=== PATIENT | female | born 1970 | race American Indian/Alaskan Native ===

== ENCOUNTER 2019-02-27 17:30 | Emergency (ER) | payer SELFPAY ==
[2019-02-27] MEDS ORDERED: IBUPROFEN PO ONE (20:56)
--- NOTE | 2019-02-27 21:24 | Emergency Department Report ---
ED Chest Pain HPI - General Chief Complaint: Chest Pain Stated Complaint: MIDDLE CHEST PAIN Time Seen by Provider: 02/27/19 20:55 Source: patient Mode of arrival: Ambulatory Limitations: No Limitations - History of Present Illness Initial Comments: pt is a 48-year-old female who presents from his midsternal chest pain pains exacerbated by palpation and movement deep breathing pain is relieved by nothing pain consistent for the past 2-3 weeks noticed chest mass 1 year ago there is no fever no chills no cough no diaphoresis no back pain patient denies shortness of breath MD Complaint: chest pain Onset/Timin -: week(s) Onset: during rest Pain Location: substernal Pain Radiation: none Severity: moderate Severity scale (0 -10): 5 Quality: sharp Consistency: constant Improves With: nothing Worsens With: palpation, other (anxiety ) re: denies: nausea, vomting, diaphoresis, dyspnea, sense of impending doom Other Symptoms: cough. denies: fever, syncope, rash, acid taste in mouth, leg swelling, palpitations Treatments Prior to Arrival: none - Related Data On Oral Contraceptives: No Previous Rx's Medication Instructions Recorded Last Taken Type Naproxen [Naprosyn TAB] 500 mg PO BID PRN #30 tablet 02/28/19 Unknown Rx Omeprazole 20 mg PO DAILY #30 tablet. 02/28/19 Unknown Rx Sucralfate [Carafate] 1 gm PO ACHS 7 Days #28 udc 02/28/19 Unknown Rx Allergies Allergy/AdvReac Type Severity Reaction Status Date / Time No Known Allergies Allergy Unverified 02/27/19 17:34 Heart Score - HEART Score History: Slightly suspicious EKG: Normal Age: 45-65 Risk factors: No known risk factors Troponin: < normal limit HEART Score: 1 ED Review of Systems ROS: Stated complaint: MIDDLE CHEST PAIN Other details as noted in HPI Constitutional: denies: chills, fever Eyes: denies: eye pain, eye discharge, vision change ENT: denies: ear pain, throat pain Respiratory: denies: cough, shortness of breath, wheezing Cardiovascular: chest pain Endocrine: no symptoms reported Gastrointestinal: denies: abdominal pain, nausea, vomiting, diarrhea Genitourinary: denies: urgency, dysuria, discharge Musculoskeletal: denies: back pain, joint swelling, arthralgia Skin: denies: rash, lesions Neurological: denies: headache, weakness, paresthesias Psychiatric: anxiety. denies: depression Hematological/Lymphatic: denies: easy bleeding, easy bruising ED Past Medical Hx - Past Medical History Previous Medical History?: Yes Hx Diabetes: Yes - Surgical History Past Surgical History?: No - Social History Smoking Status: Never Smoker Substance Use Type: None - Medications Home Medications: Home Medications Medication Instructions Recorded Confirmed Last Taken Type Naproxen [Naprosyn TAB] 500 mg PO BID PRN #30 tablet 02/28/19 Unknown Rx Omeprazole 20 mg PO DAILY #30 tablet. 02/28/19 Unknown Rx Sucralfate [Carafate] 1 gm PO ACHS 7 Days #28 udc 02/28/19 Unknown Rx ED Physical Exam - General Limitations: No Limitations General appearance: alert, in no apparent distress - Head Head exam: Present: atraumatic, normocephalic - Eye Eye exam: Present: normal appearance, PERRL, EOMI Pupils: Present: normal accommodation - ENT ENT exam: Present: mucous membranes moist - Neck Neck exam: Present: normal inspection - Respiratory Respiratory exam: Present: normal lung sounds bilaterally. Absent: respiratory distress - Cardiovascular Cardiovascular Exam: Present: regular rate, normal rhythm, normal heart sounds. Absent: systolic murmur, diastolic murmur, rubs, gallop - GI/Abdominal GI/Abdominal exam: Present: soft, normal bowel sounds. Absent: distended, tenderness, guarding, rebound, bruit, hernia - Extremities Exam Extremities exam: Present: normal inspection, full ROM, normal capillary refill. Absent: tenderness, pedal edema, joint swelling, calf tenderness - Back Exam Back exam: Present: normal inspection, full ROM. Absent: tenderness, CVA tenderness (R), CVA tenderness (L), muscle spasm, rash noted - Neurological Exam Neurological exam: Present: alert, oriented X3, CN II-XII intact, normal gait, motor sensory deficit, reflexes normal - Psychiatric Psychiatric exam: Present: normal affect, anxious - Skin Skin exam: Present: warm, dry, intact, normal color. Absent: rash ED Course Vital Signs 02/27/19 17:37 Temperature 98.3 F Pulse Rate 103 H Respiratory 16 Rate Blood Pressure 145/90 [Left] O2 Sat by Pulse 99 Oximetry ED Medical Decision Making - Lab Data Result diagrams: 02/27/19 22:33 02/27/19 22:33 Labs 02/27/19 02/27/19 22:33 22:33 WBC 10.3 RBC 4.63 Hgb 12.8 Hct 37.9 MCV 82 MCH 28 MCHC 34 RDW 14.0 Plt Count 262 Sodium 134 L Potassium 4.6 Chloride 96.2 L Carbon Dioxide 24 Anion Gap 18 BUN 11 Creatinine 0.4 L Estimated GFR > 60 BUN/Creatinine Ratio 28 Glucose 212 H Calcium 9.6 Total Bilirubin < 0.20 AST 15 ALT 17 Alkaline Phosphatase 92 Troponin T < 0.010 Total Protein 8.0 Albumin 4.1 Albumin/Globulin Ratio 1.1 Lipase 178 H - EKG Data EKG shows normal: sinus rhythm, axis, intervals, QRS complexes, ST-T waves Rate: normal - EKG Data Interpretation: normal EKG (will) - Radiology Data Radiology results: report reviewed, image reviewed (myoglobin is) Ordering Physician: DEEPTI BACA NP Date of Service: 02/27/19 Procedure(s): XR chest routine 2V Accession Number(s): [id number] cc: DEEPTI BACA NP Fluoro Time In Minutes: CHEST 2 VIEWS INDICATION / CLINICAL INFORMATION: chest pain. COMPARISON: None available. FINDINGS: SUPPORT DEVICES: None. HEART / MEDIASTINUM: No significant abnormality. LUNGS / PLEURA: No significant pulmonary or pleural abnormality. No pneumot horax. ADDITIONAL FINDINGS: No significant additional findings. IMPRESSION: 1. No acute findings. Signer Name: Randy Bell MD Signed: 02/27/2019 10:05 PM Workstation Name: [id number] Transcribed By: Dictated By: Randy Bell MD Electronically Authenticated By: Randy Bell MD Signed Date/Time: 02/27/192204 DD/ 04 TD/TT: Ordering Physician: DEEPTI BACA NP Date of Service: 02/27/19 Procedure(s): CT abdomen pelvis w con Accession Number(s): [id number] cc: DEEPTI BACA NP CT ABDOMEN AND PELVIS WITH CONTRAST INDICATION: abdominal pain. TECHNIQUE: Axial CT images were obtained through the abdomen and pelvis after 100 cc Omnipaque [address] scans at this location are performed using CT dose reduction for ALARA by means of automated exposure control. COMPARISON: None available. FINDINGS: LOWER CHEST: Solid 9 mm left lower lobe pulmonary nodule is present on image 15. LIVER: Moderate decreased attenuation throughout liver characteristic for steatosis. Liver is enlarged measuring 20 cm in craniocaudal length. GALLBLADDER: No significant abnormality. BILE DUCTS: No significant abnormality. PANCREAS: No significant abnormality. SPLEEN: Several tiny subcentimeter hypodense lesions are indeterminate and too small to characterize of doubtful clinical significance likely representing pseudocysts. ADRENALS: No significant abnormality. RIGHT KIDNEY and URETER: No significant abnormality. LEFT KIDNEY and URETER: No significant abnormality. STOMACH and SMALL BOWEL: No significant abnormality. COLON: No significant abnormality. APPENDIX: Normal PERITONEUM: No free fluid. No free air. No fluid collection. LYMPH NODES: No significant adenopathy. AORTA and ARTERIES: No significant abnormality. IVC and VEINS: No significant abnormality. URINARY BLADDER: No significant abnormality. REPRODUCTIVE ORGANS: 3.5 cm right ovarian follicular cyst. 2.3 cm left ovarian follicular cyst. Uterus absent. ADDITIONAL FINDINGS: None. SKELETAL SYSTEM: No significant abnormality. IMPRESSION: 1. 3.5 cm right and 2.3 cm left ovarian follicular cysts. No free fluid to suggest leakage or rupture. 2. No CT evidence for pancreatitis or other acute inflammatory process. 3. Moderate hepatomegaly and marked steatosis. 4. Incidental solid 9 mm left lower lobe pulmonary nodule INCIDENTAL PULMONARY NODULE RECOMMENDATIONS Solid Nodule size >8 mm -- Single - Low Risk or High Risk Patient: Consider CT at 3 months, PET/CT, or tissue s ampling Note These recommendations do not apply to lung cancer screening, patients with immunosuppression, or patients with known primary cancer. Note Newly detected indeterminate nodule in persons 35 years of age or older. Persons under the age of 35 should not receive follow-up unless there is a known primary cancer. Low Risk Patient -- minimal or absent history of smoking and of other known risk factors. High Risk Patient -- history of smoking or of other known risk factors. Nodule dimensions are average of long and short axes, rounded to the nearest millimeter. Based on 2017 Fleischner Society Guidelines found in Radiology 2017 284:228-243. [email or web address] Signer Name: Joshua Preciado MD Signed: 02/28/2019 1:58 AM Workstation Name: [id number] Transcribed By: TL Dictated By: Joshua Preciado MD Electronically Authenticated By: Joshua Preciado MD Signed Date/Time: 02/28/19157 DD/ 3 TD/TT: Critical care attestation.: If time is entered above; I have spent that time in minutes in the direct care of this critically ill patient, excluding procedure time. ED Disposition Clinical Impression: Fatty liver, Lung nodule GERD (gastroesophageal reflux disease) Qualifiers: Esophagitis presence: without esophagitis Qualified Code(s): K21.9 - Gastro- esophageal reflux disease without esophagitis Ovarian cyst Qualifiers: Laterality: right Qualified Code(s): N83.201 - Unspecified ovarian cyst, right side Disposition: TO HOME OR SELFCARE Is pt being admited?: No Does the pt Need Aspirin: No Condition: Stable Instructions: Pulmonary Nodules (ED), Gastroesophageal Reflux Disease (ED), Diet for Ulcers and Gastritis (ED), Non-Alcoholic Fatty Liver Disease (ED) Prescriptions: Sucralfate [Carafate] 1 gm PO ACHS 7 Days #28 udc Naproxen [Naprosyn TAB] 500 mg PO BID PRN #30 tablet PRN Reason: Pain , Severe (7-10) Omeprazole 20 mg PO DAILY #30 tablet. Referrals: [facility] [Provider Group] - 3-5 Days RAMILA BRANDON MD [Staff Physician] - 3-5 Days TRINITY STOUT MD [Staff Physician] - 3-5 Days Forms: Work/School Release Form(ED) Time of Disposition: 02:23
--- NOTE | 2019-02-27 22:09 | XRay Report ---
CHEST 2 VIEWS INDICATION / CLINICAL INFORMATION: chest pain. COMPARISON: None available. FINDINGS: SUPPORT DEVICES: None. HEART / MEDIASTINUM: No significant abnormality. LUNGS / PLEURA: No significant pulmonary or pleural abnormality. No pneumothorax. ADDITIONAL FINDINGS: No significant additional findings. IMPRESSION: 1. No acute findings. Signer Name: Randy Bell MD Signed: 02/27/2019 10:05 PM Workstation Name: [id number]
[2019-02-27 22:47] LABS: Hematocrit 37.9 % (30.3-42.9); Hemoglobin 12.8 gm/dl (10.1-14.3); Mean Corpuscular HGB Conc 34 % (30-34); Mean Corpuscular Volume 82 fl (79-97); Platelet Count 262 K/mm3 (140-440); Red Blood Count 4.63 M/mm3 (3.65-5.03)
[2019-02-27 23:13] LABS: Alanine Aminotransferase 17 units/L (7-56); Albumin 4.1 g/dL (3.9-5); BUN/Creatinine Ratio 28; Blood Urea Nitrogen 11 mg/dL (7-17); Calcium 9.6 mg/dL (8.4-10.2); Hemolysis Index 77
[2019-02-27] MEDS ORDERED: NACL 0.9% 1000 ML 1,000 ML IV ONE (23:36)
[2019-02-27] MEDS ORDERED: MORPHINE IV ONE (23:36)
--- NOTE | 2019-02-28 02:03 | Cat Scan Report ---
CT ABDOMEN AND PELVIS WITH CONTRAST INDICATION: abdominal pain. TECHNIQUE: Axial CT images were obtained through the abdomen and pelvis after 100 cc Omnipaque [address] scans at this location are performed using CT dose reduction for ALARA by means of automated exposure control. COMPARISON: None available. FINDINGS: LOWER CHEST: Solid 9 mm left lower lobe pulmonary nodule is present on image 15. LIVER: Moderate decreased attenuation throughout liver characteristic for steatosis. Liver is enlarge d measuring 20 cm in craniocaudal length. GALLBLADDER: No significant abnormality. BILE DUCTS: No significant abnormality. PANCREAS: No significant abnormality. SPLEEN: Several tiny subcentimeter hypodense lesions are indeterminate and too small to characterize of doubtful clinical significance likely representing pseudocysts. ADRENALS: No significant abnormality. RIGHT KIDNEY and URETER: No significant abnormality. LEFT KIDNEY and URETER: No significant abnormality. STOMACH and SMALL BOWEL: No significant abnormality. COLON: No significant abnormality. APPENDIX: Normal PERITONEUM: No free fluid. No free air. No fluid collection. LYMPH NODES: No significant adenopathy. AORTA and ARTERIES: No significant abnormality. IVC and VEINS: No significant abnormality. URINARY BLADDER: No significant abnormality. REPRODUCTIVE ORGANS: 3.5 cm right ovarian follicular cyst. 2.3 cm left ovarian follicular cyst. Uteru s absent. ADDITIONAL FINDINGS: None. SKELETAL SYSTEM: No significant abnormality. IMPRESSION: 1. 3.5 cm right and 2.3 cm left ovarian follicular cysts. No free fluid to suggest leakage or rupture . 2. No CT evidence for pancreatitis or other acute inflammatory process. 3. Moderate hepatomegaly and marked steatosis. 4. Incidental solid 9 mm left lower lobe pulmonary nodule INCIDENTAL PULMONARY NODULE RECOMMENDATIONS Solid Nodule size >8 mm -- Single - Low Risk or High Risk Patient: Consider CT at 3 months, PET/CT, or tissue sampling Note These recommendations do not apply to lung cancer screening, patients with immunosuppression, o r patients with known primary cancer. Note Newly detected indeterminate nodule in persons 35 years of age or older. Persons under the age of 35 should not receive follow-up unless there is a known primary cancer. Low Risk Patient -- minimal or absent history of smoking and of other known risk factors. High Risk Patient -- history of smoking or of other known risk factors. Nodule dimensions are average of long and short axes, rounded to the nearest millimeter. Based on 2017 Fleischner Society Guidelines found in Radiology 2017 284:228-243. [email or web address] Signer Name: Joshua Preciado MD Signed: 02/28/2019 1:58 AM Workstation Name: [id number]
[2019-02-28 03:04] VITALS: BP 159/87
== END 2019-02-28 03:02 | disposition home or self-care (01) ==
LOC: ED 17:30
DX: K76.0 Fatty (change of) liver, not elsewhere classified (principal); J98.4 Other disorders of lung; K21.9 Gastro-esophageal reflux disease without esophagitis; N83.201 Unspecified ovarian cyst, right side; E11.9 Type 2 diabetes mellitus without complications
CPT/HCPCS: 36415; 71046; 74177; 80053; 83690; 84484; 85027; 99284; J7030; Q9967; J2270